=== PATIENT | male | born 1975 | race Caucasian/White ===

== ENCOUNTER 2018-09-10 11:26 | Emergency (ER) | payer BC, SELFPAY ==
[2018-09-10 11:27] VITALS: BP 124/69; PULSE 65; RESP 18; TEMP 36.8; O2SAT 94; BMI 39.9
--- NOTE | 2018-09-10 12:07 | EKG12_ITS ---
Test Reason : GEN ILLNESS Blood Pressure : / mmHG Vent. Rate : 061 BPM Atrial Rate : 061 BPM P-R Int : 134 ms QRS Dur : 084 ms QT Int : 404 ms P-R-T Axes : 066 066 065 degrees QTc Int : 406 ms Normal sinus rhythm Nonspecific ST segment abnormality Confirmed by JEROMY SILVA, FAHAD ([id number]), editorial director THAO NI ([id number] on 09/14/2018 6:31:43 AM Referred By: ZOFIA Confirmed By:FAHAD PINZON MD
[2018-09-10 12:29] VITALS: PULSE 65; RESP 20
[2018-09-10] MEDS: Ipratropium/Albuterol Sulfate 3 ML AMPUL.NEB INHALATION (12:29)
[2018-09-10 12:30] LABS: Absolute Lymphocyte Count 1.47 X10^3/ul (0.83-4.51); Absolute Neutrophil Count 13.3 X10^3/uL (2.0-7.7); Basophil# 0.01 X10^3/uL; Basophil% 0.1 % (0-1); Eosinophil# 0.02 X10^3/uL; Eosinophils% 0.1 % (0-5); Hemoglobin 15.6 g/dl (13.0-16.5); Lymphocyte # 1.47 X10^3/ul (4.0); Lymphocyte % 9.5 % (19-41); Mean Corp Hgb Conc 33.9 g/gl (32-36); Mean Corpuscular Hgb 32.5 pg (27.0-32.0); Mean Corpuscular Volume 95.8 fL (80-94); Mean Platelet Vol. 10.6 fl (6.2-12.0); Monocyte# 0.66 X10^3/uL; Monocyte% 4.3 % (0-10); Neutrophil % 85.7 % (47-70); Platelet Count 170 K/mm3 (150-450); RBC Distribution Width CV 13.3 % (11.6-14.6); RBC Distribution Width SD 46.7 fl (35.1-43.9); White Blood Count 15.5 K/mm3 (4.4-11.0)
[2018-09-10] MEDS: 0.9% Normal Saline 1,000 ML 150 ML IV (12:33)
[2018-09-10] MEDS: MethylPREDNISolone 125 MG/2 ML Vial IV (12:33)
[2018-09-10] MEDS: Ketorolac 30 MG/ML Syringe IV (12:33)
[2018-09-10 12:43] LABS: Anion Gap 5 (5-15); BUN 12 mg/dL (7-18); BUN/Creat Ratio 12.8 RATIO (10-20); Calcium,Total 8.6 mg/dL (8.5-10.1); Chloride 107 mmol/L (98-107); Creatinine, Serum 0.94 mg/dL (0.70-1.30); EST Glomerular Filtration Rate 94 mL/min (>60); Est Glom Filt Rate - Afr Amer 114 mL/min (>60); Estimated Creatinine Clearance 93.32 ml/min; Glucose 87 mg/dL (74-106); Potassium 4.2 mmol/L (3.5-5.1); Sodium Level 140 mmol/L (136-145)
[2018-09-10 12:46] LABS: POSITIVE COUNT NO; POSITIVE DIFFERENTIAL NO; POSITIVE MORPHOLOGY NO
[2018-09-10 14:11] VITALS: BP 119/65; PULSE 56; RESP 16; O2SAT 99
[2018-09-10 14:28] VITALS: PULSE 70; RESP 18
[2018-09-10] MEDS: Albuterol 2.5 MG/3 ML VIAL.NEB. INHALATION ×2 (14:28)
[2018-09-10] MEDS: levoFLOXacin 750 MG Tablet PO (14:59)
--- NOTE | 2018-09-10 15:25 | ED.DCSUM_ITS ---
- ER Visit Summary Date of Service: 09/10/18 Chief Complaint: Short of breath, fever, dizzy History of Present Illness: The patient is a 43 M who states he woke on the 29th with congestion, cough, wheezing. He has cough with yellow sputum. He has had subjective fever. He was seen in urgent care yesterday. Chest x-ray was normal. He was given albuterol and prednisone. Today he had some posttussive emesis and came to emergency room. Patient is a long-standing smoker but denies any history of asthma or COPD. Physical Examination: Vital signs grossly unremarkable. Patient sitting upright in bed no acute distress. Heart is regular rate and rhythm. Lung sounds are diminished throughout. Abdomen is soft and nontender. Test Results: EKG is sinus at 61 with no acute ischemia. CBC was a white count of 15.5 with left shift. Chemistry studies normal. Influenza swab negative. Chest x-ray report from yesterday was reviewed and unremarkable. Emergency Department Course and Treatment: Patient was initially given IV fluids, Toradol, Solu-Medrol, and a DuoNeb treatment. On repeat evaluation patient states that his breathing had gotten significant better but when he was now started to have wheezing again. He was given 2 additional albuterol treatments. At this time lungs are clear. He has an albuterol MDI at home and he was given a spacer to use. He will continue prednisone and we will add Levaquin. Treatment Plan: [] Disposition: Discharge Impression: Bronchitis This note was generated with [employer] dictation software. It may contain incorrect words, spelling, and punctuation that were not noted in review of the chart prior to signing ED Disposition - Plan for ED Patient: Disposition: Home or Assisted Living Instructions: ED Upper Resp Infec Abx Tx Prescriptions: Levofloxacin [Levaquin] 750 mg PO DAILY #4 tablet Referrals: Adama Hoyt III, MD [Primary Care Provider] - 1 Week
[2018-09-10 15:35] VITALS: BP 119/57; PULSE 57; RESP 26; O2SAT 97
--- NOTE | 2018-09-10 15:36 | ED.RN ---
IV DC'ED, CATHETER INTACT, SMALL GAUZE DRESSING PLACED. DISCHARGE INSTRUCTIONS GIVEN TO AND REVIEWED WITH PATIENT PATIENT DENIES QUESTIONS OR CONCERNS AND VOICES UNDERSTANDING OF DISCHARGE INSTRUCTIONS. PT AMBULATES OUT OF ROOM WITHOUT DIFFICULTY.
== END 2018-09-10 15:37 | disposition home or self-care (01) ==
PROVIDERS: Emergency Provider Emergency Medicine; Family Provider Family Medicine; PCP Family Medicine
DX: J40 Bronchitis, not specified as acute or chronic (principal); Z72.0 Tobacco use
CPT/HCPCS: 80048; 85025; 87804; 93005; 94640; 94664; 96361; 96374; 96375; 99284; J7030

== ENCOUNTER → 2019-10-08 16:55 | Outpatient (CLI) | payer BC, SELFPAY | PROVIDERS: PCP Family Medicine; Referring Provider Family Medicine; Visit Provider Family Medicine | DX: B34.9 Viral infection, unspecified (principal) | CPT/HCPCS: 87635; G2023; U0003 ==